=== PATIENT | male | born 1965 | race Caucasian/White ===

== ENCOUNTER 2018-09-18 06:32 | Emergency (ER) | payer BC, OTHER ==
[2018-09-18 07:17] VITALS: BMI 23.1
--- NOTE | 2018-09-18 08:56 | PDOC ---
History of Present Illness - General Chief Complaint: Eye Problem Stated Complaint: R SIDED EYE SWELLING S/P FALL Time Seen by Provider: 09/18/18 08:32 History Source: Patient Exam Limitations: Clinical Condition - History of Present Illness Initial Comments: 09/18/18 08:50 Patient with no significant past medication present with complaint of bruising and swelling to right side of face and swelling to right eye status post fall 2 days ago. Patient reported he tripped and fell on his face on the right side. Patient reported increased swelling under right eye. Patient denies blurry vision, dizziness, change in vision. Patient reported mild pain behind right eye. Patient denies nausea or vomiting. Patient denies any other symptoms 09/18/18 08:51 Timing/Duration: other (3 days) Past History - Past Medical History Allergies/Adverse Reactions: Allergies Allergy/AdvReac Type Severity Reaction Status Date / Time No Known Allergies Allergy Verified 09/18/18 07:17 Home Medications: Ambulatory Orders Ibuprofen 600 mg PO Q8H PRN #12 tablet 09/18/18 Mupirocin Ointment [Bactroban 2% Ointment -] 1 applic TP BID #1 tube 09/18/18 - Suicide/Smoking/Psychosocial Hx Smoking History: Never smoked Have you smoked in the past 12 months: No Information on smoking cessation initiated: No Hx Alcohol Use: No Drug/Substance Use Hx: No Review of Systems - Review of Systems Able to Perform ROS?: Yes Is the patient limited Pakistani proficient: No Constitutional: No: Weakness HEENTM: Yes: Symptoms Reported, See HPI, Eye Pain (right eye), Tearing, Other ( swelling around right eye). No: Blurred Vision, Recent change in vision, Double Vision, Cataracts, Ear Pain, Ocular Prothesis, Ear Discharge, Nose Pain, Nose Congestion, Tinnitus, Nose Bleeding, Hearing Loss, Throat Pain, Throat Swelling, Mouth Pain, Dental Problems, Difficulty Swallowing, Mouth Swelling Respiratory: No: Symptoms reported Cardiac (ROS): No: Symptoms Reported ABD/GI: No: Nausea, Vomiting Integumentary: Yes: Bruising (right side of face, right forehead), Other ( swelling below right eye) Neurological: No: Headache, Numbness, Dizziness All Other Systems: Reviewed and Negative *Physical Exam - Vital Signs Last Vital Signs Temp Pulse Resp BP Pulse Ox 98.1 F 70 18 146/82 100 09/18/18 06:35 09/18/18 06:35 09/18/18 06:35 09/18/18 06:35 09/18/18 06:35 - Physical Exam Comments: 09/18/18 08:54 GENERAL: Well developed, well nourished. Awake and alert. No acute distress. HEENT: moderate swelling to right lower eyelid and zygomatic bone.multiple abrasions to right side of face and forehead. PERRLA, EOMI. No conjunctival pallor. Sclera are non-icteric. Moist mucous membranes. Oropharynx is clear. NECK: Supple. Full ROM. CARDIOVASCULAR: Regular rate and rhythm. No murmurs, rubs, or gallops. Distal pulses are 2+ and symmetric. PULMONARY: No evidence of respiratory distress. Lungs clear to auscultation bilaterally. No wheezing, rales or rhonchi. ABDOMINAL: Soft. Non-tender. Non-distended. No rebound or guarding. No organomegaly. Normoactive bowel sounds. MUSCULOSKELETAL Normal range of motion at all joints. SKIN: multiple superficial abrasions to right side of face. NEUROLOGICAL: Alert, awake, appropriate. Gait is normal without ataxia. PSYCHIATRIC: Cooperative. Good eye contact. Appropriate mood General Appearance: Yes: Nourished, Appropriately Dressed. No: Apparent Distress Moderate Sedation - Procedure Monitoring Vital Signs: Procedure Monitoring Vital Signs Temperature 98.1 F 09/18/18 06:35 Pulse Rate 70 09/18/18 06:35 Respiratory Rate 18 09/18/18 06:35 Blood Pressure 146/82 09/18/18 06:35 O2 Sat by Pulse Oximetry (%) 100 09/18/18 06:35 ED Treatment Course - RADIOLOGY Radiology Studies Ordered: Category Date Time Status FACIAL BONES CT W/O CONTRAST [CT] Stat CT Scan 09/18/18 08:42 Ordered Medical Decision Making - Medical Decision Making 09/18/18 08:56 Patient with no significant past medication present with complaint of pain to right eye, swelling to right lower leg and multiple patient to right side of face status post for 2 days ago. Patient reports swelling increase this morning upon wake to right lower eye. Patient denies dizziness, blurry vision or change in vision. Extraocular muscle intact on exam. Pupils reflected to light bilateral. Moderate swelling to right lower eyelid and zygomatic bone area with multiple abrasions to right side of face. Patient bone CT ordered to rule out acute orbital fracture 09/18/18 10:[address] shows no acute fracture. Patient stable for discharge with ophthalmology follow-up as needed. Patient advised on NSAIDS and warm compress for swelling. Topical mupirocin for facial abrasions *DC/Admit/Observation/Transfer Diagnosis at time of Disposition: Facial contusion Qualifiers: Encounter type: initial encounter Qualified Code(s): S00.83XA - Contusion of other part of head, initial encounter Facial abrasion Qualifiers: Encounter type: initial encounter Qualified Code(s): S00.81XA - Abrasion of other part of head, initial encounter - Discharge Dispostion Disposition: HOME Condition at time of disposition: Stable Decision to Admit order: No - Prescriptions Prescriptions: Ibuprofen 600 mg PO Q8H PRN #12 tablet PRN Reason: pain Mupirocin Ointment [Bactroban 2% Ointment -] 1 applic TP BID #1 tube - Referrals Referrals: Fadia Carrera MD [Staff Physician] - - Patient Instructions Printed Discharge Instructions: DI for Eye Contusion Additional Instructions: Your CAT scan was normal. take motrin as needed for pain. Apply warm compress 2- 3times/ day for 5-10mins for swelling. Apply bactroban cream to abrasions. Follow-up with referred ophthalmology if symptoms persists for more than 4 days or worsens - Post Discharge Activity Forms/Work/School Notes: Back to Work
[2018-09-18] MEDS ORDERED: ACETAMINOPHEN 325 MG TABLET (FP) ONE (09:28)
--- NOTE | 2018-09-18 09:28 | PDOC ---
*Physical Exam - Vital Signs Last Vital Signs Temp Pulse Resp BP Pulse Ox 98.1 F 70 18 146/82 100 09/18/18 06:35 09/18/18 06:35 09/18/18 06:35 09/18/18 06:35 09/18/18 06:35 Medical Decision Making - Medical Decision Making 09/18/18 09:28 Pt seen by Midlevel Provider under my direct supervision Ancillary studies reviewed I agree with plan as outlined by Midlevel Provider *DC/Admit/Observation/Transfer Diagnosis at time of Disposition: Facial contusion, Facial abrasion - Discharge Dispostion Disposition: HOME Condition at time of disposition: Stable - Prescriptions Prescriptions: Ibuprofen 600 mg PO Q8H PRN #12 tablet PRN Reason: pain Mupirocin Ointment [Bactroban 2% Ointment -] 1 applic TP BID #1 tube - Referrals Referrals: Fadia Carrera MD [Staff Physician] - - Patient Instructions Printed Discharge Instructions: DI for Eye Contusion Additional Instructions: Your CAT scan was normal. take motrin as needed for pain. Apply warm compress 2- 3times/ day for 5-10mins for swelling. Apply bactroban cream to abrasions. Follow-up with referred ophthalmology if symptoms persists for more than 4 days or worsens - Post Discharge Activity Forms/Work/School Notes: Back to Work
[2018-09-18] MEDS ORDERED: ACETAMINOPHEN 325 MG TABLET (FP) PO ONE (09:29)
[2018-09-18 10:28] VITALS: BP 141/81; PULSE 60; TEMP 97.8
== END 2018-09-18 10:27 | disposition home or self-care (01) ==
LOC: JER 06:32
DX: S00.83XA Contusion of other part of head, initial encounter (principal); S00.81XA Abrasion of other part of head, initial encounter; W01.0XXA Fall on same level from slipping, tripping and stumbling without subsequent striking against object, initial encounter; Y93.9 Activity, unspecified; Y92.9 Unspecified place or not applicable
CPT/HCPCS: 70486-TC; 99282-25